=== PATIENT | male | born 1980 | race Caucasian/White ===

== ENCOUNTER → 2021-06-28 10:12 | Outpatient (CLI) | payer OTHER, SELFPAY ==
--- NOTE | 2021-06-28 11:00 | RAD_ITS ---
History: SOB EXAMINATION/TECHNIQUE: XR Chest 2 Views: COMPARISON: None FINDINGS: LINES/DEVICES: None. LUNGS: No consolidation, edema or effusion. No pneumothorax. MEDIASTINUM AND CARDIOVASCULAR STRUCTURES: Cardiac silhouette not enlarged. Central airways and mediastinal contour are unremarkable. BONES AND SOFT TISSUES: Unremarkable. RAD/Chest PA and Lateral IMPRESSION: No radiographic evidence of acute cardiopulmonary disease. at 1659 Reported and signed by: Mark Rawls MD Electronically Signed: Mark Rawls MD at 16:58 EST Tel , Service support ,
--- NOTE | 2021-06-28 15:56 | PFTCOMP ---
COMPLETE PULMONARY FUNCTION TEST INTERPRETATION Brief HPI: Patient is a 40 year old male, currently under the care of Dr. Guerrero, who presents to [facility] for complete pulmonary function tests secondary to diagnosis of dyspnea. Respiratory therapist reports good effort and reproducible results. Interpretation: Forced expiration spirometry shows no large airways obstructive ventilatory defect with an FEV1 of 95% predicted. There is no significant bronchodilator response by strict ATS criteria. Spirograms are of good quality and plateau normally. The respiratory flow volume loop shows a normal pattern. Lung volumes by body plethysmography show a normal total lung capacity at 5.86 L, 84% predicted. All other lung volumes are at the lower limit of normal. Diffusion capacity by carbon monoxide is normal at 94% predicted. The airway resistance is normal. No previous pulmonary function tests were available for review. Impression: Grossly normal pulmonary function test. Patient does have lung volumes at the lower limit of normal. Could consider chest imaging if not done previously
== END ==
DX: R06.02 Shortness of breath (principal)
CPT/HCPCS: 71046; 94060; 94726; 94729